=== PATIENT | female | born 1985 | race Caucasian/White ===

== ENCOUNTER 2018-09-02 06:56 | Emergency (ER) | payer OTHER ==
[2018-09-02 07:25] VITALS: BP 133/70
[2018-09-02] MEDS ORDERED: ACETAMINOPHEN 500 MG TABLET PO STA (07:41)
[2018-09-02] MEDS ORDERED: DEXAMETHASONE 10 MG/ML VIAL PO STA (07:41)
--- NOTE | 2018-09-02 07:52 | ED Physician Documentation ---
PD HPI URI - Stated complaint Stated Complaint: THROAT PX/FEVER - Chief complaint Chief Complaint: Heent - Additional information Additional information: 33-year-old female presents the emergency department with 7 days of URI symptoms, today the patient developed a fever and sore throat. The patient reports pain with swallowing. The patient denies shortness of breath, chest pain, or sinus pressure. The patient has had improvement with [id number] Motrin. Symptoms are described as mild. No other associated symptoms. Positive for sick contacts the patient's child is also sick with similar symptoms Review of Systems Constitutional: reports: Fever, Myalgias Eyes: denies: Discharge Ears: denies: Drainage/discharge, Tinnitus/ringing Nose: reports: Congestion Throat: reports: Sore throat Cardiac: denies: Chest pain / pressure Respiratory: reports: Cough. denies: Hemoptysis GI: denies: Vomiting : denies: Dysuria Skin: denies: Rash Musculoskeletal: denies: Neck pain Immunocompromised: denies: Chemotherapy PD PAST MEDICAL HISTORY - Past Medical History Past Medical History: No - Present Medications Home Medications: Ambulatory Orders Medication Instructions Recorded Confirmed No Known Home Medications 09/02/18 09/02/18 - Allergies Allergies/Adverse Reactions: Allergies Allergy/AdvReac Type Severity Reaction Status Date / Time No Known Drug Allergies Allergy Verified 09/02/18 07:22 - Social History Does the pt smoke?: No Smoking Status: Never smoker Does the pt have substance abuse?: No - Immunizations Immunizations are current?: Yes - POLST Patient has POLST: No PD ED PE NORMAL - General General: Alert and oriented X 3, No acute distress - HEENT HEENT: Atraumatic, PERRL, EOMI, Ears normal - Neck Neck: Supple, no meningeal sign - Cardiac Cardiac: RRR, Strong equal pulses - Respiratory Respiratory: No respiratory distress, Clear bilaterally - Derm Derm: Normal color - Extremities Extremities: No deformity - Neuro Neuro: Alert and oriented X 3, Normal speech - Psych Psych: Normal affect PD ED PE EXPANDED - HEENT HEENT: Atraumatic, Head injury, PERRL, Pupils unequal, EOMI, Ears normal, Nasal congestion, Pharyngeal erythema, Dentition normal. No: Swollen tonsils, Tonsillar exudate, Soft palate petecchiae, PORTER HEAD Results - Vitals Vitals: Vital Signs - 24 hr 09/02/18 07:22 Temperature 37.2 C Heart Rate 101 H Respiratory 16 Rate Blood Pressure 133/70 H O2 Saturation 93 Oxygen O2 Source Room air - Labs Labs: Laboratory Tests 09/02/18 07:40 Group A Strep Rapid Negative PD MEDICAL DECISION MAKING - ED course ED course: The patient's symptoms are most likely from a viral etiology, a culture was s ent. The patient appears appropriate for ongoing outpatient management. On clinical exam there is no evidence of a peritonsillar abscess or retropharyngeal abscess or sepsis. I discussed warning signs and recommended returning to the emergency department immediately for any worsening or any concerns. Departure - Departure Disposition: 01 Home, Self Care Clinical Impression: Viral pharyngitis Condition: Good Instructions: ED Pharyngitis Viral Comments: Please follow up with primary care in one week. Please return to the emergency department for worsening symptoms or any concerns
== END 2018-09-02 08:27 | disposition home or self-care (01) ==
LOC: MERGE 06:56 → ED 06:56
DX: J02.8 Acute pharyngitis due to other specified organisms (principal)
CPT/HCPCS: 87070; 87430; 99283; A9270

== ENCOUNTER 2019-02-21 03:05 | Emergency (ER) | payer OTHER ==
[2019-02-21 03:19] VITALS: BP 117/54
--- NOTE | 2019-02-21 03:29 | ED Physician Documentation ---
PD HPI URI - Stated complaint Stated Complaint: FEVER - Chief complaint Chief Complaint: Fever - History obtained from History obtained from: Patient - History of Present Illness Timing - onset: How many days ago (2) Timing duration: Days (2) Timing details: Gradual onset, Still present Associated symptoms: Fever, Sore throat, Swollen nodes. No: Nasal congestion, Dry cough Contributing factors: Sick contact (her 2 children on abx currently for pharyngitis) Similar symptoms before: Has not had sx before Recently seen: Not recently seen Review of Systems Constitutional: reports: Fever Nose: denies: Rhinorrhea / runny nose, Congestion Throat: reports: Sore throat Respiratory: denies: Cough PD PAST MEDICAL HISTORY - Past Medical History Past Medical History: No - Past Surgical History Past Surgical History: No - Present Medications Home Medications: Ambulatory Orders Medication Instructions Recorded Confirmed Cephalexin [Keflex] 500 mg PO TID #20 capsule 02/21/19 - Allergies Allergies/Adverse Reactions: Allergies Allergy/AdvReac Type Severity Reaction Status Date / Time No Known Drug Allergies Allergy Verified 09/22/18 13:26 - Social History Does the pt smoke?: No Smoking Status: Never smoker Does the pt drink ETOH?: Yes Does the pt have substance abuse?: No - Immunizations Immunizations are current?: Yes - POLST Patient has POLST: No PD ED PE NORMAL - Vitals Vital signs reviewed: Yes - General General: Alert and oriented X 3, No acute distress, Well developed/nourished - HEENT HEENT: No: Ears normal (right okay; left with bulging TM and some redness. ), Pharynx benign (some tonsillar redness and swelling. ) - Neck Neck: Supple, no meningeal sign, Other (anterior adenopathy both sides) - Cardiac Cardiac: RRR, No murmur - Respiratory Respiratory: Clear bilaterally - Abdomen Abdomen: Soft, Non tender - Derm Derm: Normal color, Warm and dry Results - Vitals Vitals: Vital Signs - 24 hr 02/21/19 03:14 Temperature 37.5 C Heart Rate 99 Respiratory 18 Rate Blood Pressure 117/54 L O2 Saturation 97 Oxygen O2 Source Room air PD MEDICAL DECISION MAKING - ED course Complexity details: considered differential (her 2 daughters currently on abx. ), d/w patient Departure - Departure Disposition: 01 Home, Self Care Clinical Impression: Pharyngitis, acute Qualifiers: Pharyngitis/tonsillitis etiology: unspecified etiology Qualified Code(s): J02.9 - Acute pharyngitis, unspecified Condition: Stable Record reviewed to determine appropriate education?: Yes Instructions: ED Strep Pharyngitis Poss Prescriptions: Cephalexin [Keflex] 500 mg PO TID #20 capsule Comments: The fever along with the sore throat and some redness particularly in the left ear would be suggestive of bacterial infection we will treat that with cephalexin 3 times a day for a week. Drink lots of fluids. Use Tylenol or ibuprofen for fevers and pains. Recheck if not improving over the next few days. Discharge Date/Time: 02/21/19 04:30
[2019-02-21] MEDS ORDERED: CHERRY SYRUP 10 ML UDC PO ONE (04:13)
[2019-02-21] MEDS ORDERED: cephALEXin 250 MG CAPSULE PO STA (04:13)
[2019-02-21] MEDS ORDERED: DEXAMETHASONE 10 MG/ML VIAL PO STA (04:13)
== END 2019-02-21 04:30 | disposition home or self-care (01) ==
LOC: ED 03:05
DX: J02.9 Acute pharyngitis, unspecified (principal)
CPT/HCPCS: 99283; A9270

== ENCOUNTER 2020-10-27 00:02 | Emergency (ER) | payer BC, OTHER ==
[2020-10-27] MEDS ORDERED: predniSONE 20 MG TABLET PO STA (01:05)
[2020-10-27] MEDS ORDERED: FAMOTIDINE 20 MG TABLET PO STA (01:05)
--- NOTE | 2020-10-27 01:09 | ED Physician Documentation ---
PD HPI SKIN - Stated complaint Stated Complaint: RASH - Chief complaint Chief Complaint: Wound - History obtained from History obtained from: Patient - Additional information Additional information: Is emergency department complaining of hives and itching that started yesterday. Patient states she had stayed at a hotel with her and after sleeping in the bed, began to notice a hive-like rash around her torso and on her legs. She states the itching got worse and worse, so she went to the emergency department in [place] and was told that it was most likely a reaction to something on the sheets. Patient was started on Benadryl and prednisone and states that the rash more or less resolved. However, the patient went snowboarding with her today and afterward, when she removed her clothes, she noticed that the rash had recurred even worse than before on her legs, entire torso, and arms. She states that the rash seems to be worst where her clothing has been rubbing. Patient denies any swelling of any of the oropharyngeal structures. No difficulty breathing. No throat tightness. She states that she has not been exposed to anything else that she can think of that could have caused the reaction. She does note that she ate dinner at the hotel restaurant, and this included foods like Caesar salad, Indonesian fries, and a burger, which the patient normally eats. She is not on any new medicines prior to the reaction or any new cosmetic products. The patient states that she has not taken another dose of prednisone since the when she received at the emergency department in [place] at 430 yesterday morning. She has been taking 50 mg of Benadryl every 6 hours and her last dose was around 2230. Review of Systems Ten Systems: 10 systems reviewed and negative Constitutional: reports: Reviewed and negative Eyes: reports: Reviewed and negative Ears: reports: Reviewed and negative Nose: reports: Reviewed and negative Throat: reports: Reviewed and negative Cardiac: reports: Reviewed and negative Respiratory: reports: Reviewed and negative GI: reports: Reviewed and negative : reports: Reviewed and negative Skin: reports: Rash Musculoskeletal: reports: Reviewed and negative Neurologic: reports: Reviewed and negative Psychiatric: reports: Reviewed and negative Endocrine: reports: Reviewed and negative Immunocompromised: reports: Reviewed and negative PD PAST MEDICAL HISTORY - Past Surgical History Past Surgical History: No - Present Medications Home Medications: Ambulatory Orders Medication Instructions Recorded Confirmed Famotidine [Pepcid] 20 mg PO BID #10 tablet 10/27/20 predniSONE [Deltasone] 20 mg PO DAILY 10/27/20 10/27/20 - Allergies Allergies/Adverse Reactions: Allergies Allergy/AdvReac Type Severity Reaction Status Date / Time No Known Drug Allergies Allergy Verified 10/27/20 00:26 - Social History Does the pt smoke?: No Smoking Status: Never smoker Does the pt drink ETOH?: Yes Does the pt have substance abuse?: No - Immunizations Immunizations are current?: Yes - POLST Patient has POLST: No PD ED PE NORMAL - Vitals Vital signs reviewed: Yes - General General: Alert and oriented X 3, No acute distress - HEENT HEENT: Atraumatic, PERRL, EOMI, Moist mucous membranes, Other (No facial swelling) - Neck Neck: Supple, no meningeal sign - Cardiac Cardiac: RRR, No murmur - Respiratory Respiratory: No respiratory distress, Clear bilaterally - Abdomen Abdomen: Soft, Non tender, Non distended - Derm Derm: Warm and dry, No rash (Extensive urticarial rash over patient's extremities and trunk.) - Extremities Extremities: No deformity, No edema - Neuro Neuro: Alert and oriented X 3 - Psych Psych: Normal mood, Normal affect Results - Vitals Vitals: Vital Signs - 24 hr 10/27/20 00:10 Temperature 36.9 C Heart Rate 97 Respiratory 18 Rate Blood Pressure 136/72 H O2 Saturation 100 Oxygen O2 Source Room air PD MEDICAL DECISION MAKING - ED course Complexity details: considered differential, d/w patient ED course: I discussed with the patient that it is not clear what exactly has caused her reaction. I would not expect a contact allergy to have recurred hours after the patient had stopped being in contact with the cause of the reaction. It is possible that the patient ingested something on one of the foods that she ate, even a chemical residue, that has caused this reaction as a systemic response, and this could be the explanation for the recurrence and ongoing nature. The patient does not have any impending airway compromise, and at this point in time, I have advised her that she will most likely need to wait the symptoms out. She was prescribed 40 mg daily of prednisone and I will increase this to 60 mg. I will also add Pepcid to the patient's regimen. I do not feel that epinephrine is indicated at this time. We have discussed the potential need for follow-up with an associate professor of archaeology if symptoms do not begin to angelita in the next 2 to 3 days. Departure - Departure Clinical Impression: Allergic reaction Qualifiers: Encounter type: initial encounter Qualified Code(s): T78.40XA - Allergy, unspecified, initial encounter Condition: Stable Instructions: ED Allergic Reaction General Other Follow-Up: CRISTINE CANDELARIA MD [Physician No Access] - Konstantin Cosme MD [Physician No Access] - Prescriptions: Famotidine [Pepcid] 20 mg PO BID #10 tablet Comments: Unfortunately, allergic reactions for the most part look alike, and it is difficult to say what has caused the reaction this time. Given that you yourself from what you originally thought had caused the reactionthe sheets that your hoteland the symptoms came back anyway, it is very possible that you were reacting to something else that you were exposed to. Reactions to things that are taken into the body, such as medications or food, or chemical residues on food, can commonly last for 3 or 4 days. Usually after this amount of time, the reaction will settle down on its own. Mostly, it is a waiting game to allow the body to get a reaction under control. You should of course avoid anything to which you think you may be allergic. Also, take prednisone 60 mg once daily, Benadryl 50 mg every 6 hours, and Pepcid 20 mg every 12 hours to help with the symptoms. If you begin to develop swelling in the mouth or throat, please return to the emergency department immediately.
[2020-10-27 01:45] VITALS: BP 130/70
== END 2020-10-27 01:43 | disposition home or self-care (01) ==
LOC: ED 00:02
DX: L50.0 Allergic urticaria (principal); T78.40XA Allergy, unspecified, initial encounter
CPT/HCPCS: 99282; 99284; A9270; J7512